=== PATIENT | female | born 1940 | race Caucasian/White ===

== ENCOUNTER 2020-09-16 15:09 | Inpatient (IN) ==
[2020-09-16] MEDS ORDERED: Morphine 4 MG/ML VIAL (1 ml) IV ONE (15:24)
[2020-09-16 16:47] LABS: ABS Lymphocytes 0.6 10^3/ul (1.0-4.8); ABS Monocytes 0.6 10^3/ul (0-0.8); ABS Neutrophils 7.9 10^3/ul (1.5-7.7); Eosinophil % 0.1 %; Hematocrit 39 % (35-47); Hemoglobin 12.8 g/dL (12.0-16.0); Lymphocyte % 6.6 %; Mean Corpuscular HGB Conc 33 g/dL (31-36); Mean Corpuscular Hemoglobin 31 pg (27-31); Mean Corpuscular Volume 94 fL (80-97); Mean Platelet Volume 9.1 fL (7.4-10.4); Platelet Count 143 10^3/uL (150-450); Red Blood Count 4.12 10^6 /uL (3.70-4.87); Red Cell Distribution Width 13 % (10-15); White Blood Count 9.2 10^3/uL (3.5-10.8)
[2020-09-16 17:08] LABS: Albumin/Globulin Ratio 1.8 (1-3); BUN/Creatinine Ratio 33.8 (8-20); Calcium 8.7 mg/dL (8.6-10.3); EGFR African American 87.1 (>60); EGFR Non-African American 71.9 (>60); Globulin 2.2 g/dL (2-4); Potassium 3.8 mmol/L (3.5-5.0); Total Bilirubin 0.5 mg/dL (0.2-1.0); Total Protein 6.2 g/dL (6.4-8.9)
[2020-09-16] MEDS ORDERED: Sodium Citrate/Citric Acid LIQ 15 ML UDC PO ONE (18:02)
[2020-09-16] MEDS: NS 0.9% 1000 ml BAG 1,000 ML IV SCH (21:41)
[2020-09-16] MEDS ORDERED: Heparin 5000 UNITS/ML 1 mL VIAL SUBCUT SCH (22:00)
[2020-09-17 05:21] LABS: ABS Monocytes 0.4 10^3/ul (0-0.8); ABS Neutrophils 2.8 10^3/ul (1.5-7.7); Eosinophil % 0.8 %; Hematocrit 36 % (35-47); Lymphocyte % 23.1 %; Mean Corpuscular HGB Conc 33 g/dL (31-36); Mean Corpuscular Hemoglobin 31 pg (27-31); Mean Corpuscular Volume 95 fL (80-97); Mean Platelet Volume 8.4 fL (7.4-10.4); Nucleated Red Blood Cells % 0.1; Platelet Count 122 10^3/uL (150-450); Red Blood Count 3.85 10^6 /uL (3.70-4.87); Red Cell Distribution Width 13 % (10-15); White Blood Count 4.3 10^3/uL (3.5-10.8)
[2020-09-17 05:26] LABS: INR 1.12 (0.82-1.09)
[2020-09-17 05:40] LABS: BUN/Creatinine Ratio 29.4 (8-20); Calcium 8.2 mg/dL (8.6-10.3); EGFR African American 100.5 (>60); Potassium 3.8 mmol/L (3.5-5.0)
[2020-09-17] MEDS: NF: Mirabegron 50 mg ER TAB (NF) PO SCH (07:54)
[2020-09-17] MEDS: NS 0.9% 1000 ml BAG 1,000 ML IV SCH (07:54)
[2020-09-17] MEDS ORDERED: Heparin 5000 UNITS/ML 1 mL VIAL SUBCUT SCH ×2 (14:00→22:00)
[2020-09-18] MEDS: NS 0.9% 1000 ml BAG 1,000 ML IV SCH ×2 (01:57→12:05)
[2020-09-18 05:36] LABS: ABS Basophils 0.1 10^3/ul (0-0.2); ABS Lymphocytes 0.7 10^3/ul (1.0-4.8); ABS Monocytes 0.8 10^3/ul (0-0.8); ABS Neutrophils 6.4 10^3/ul (1.5-7.7); Eosinophil % 0.2 %; Hematocrit 36 % (35-47); Hemoglobin 12.1 g/dL (12.0-16.0); Lymphocyte % 8.7 %; Mean Corpuscular HGB Conc 34 g/dL (31-36); Mean Corpuscular Hemoglobin 32 pg (27-31); Mean Corpuscular Volume 94 fL (80-97); Mean Platelet Volume 9.1 fL (7.4-10.4); Platelet Count 127 10^3/uL (150-450); Red Blood Count 3.79 10^6 /uL (3.70-4.87); Red Cell Distribution Width 13 % (10-15)
[2020-09-18 05:51] LABS: BUN/Creatinine Ratio 25.8 (8-20); Calcium 8.2 mg/dL (8.6-10.3); EGFR African American 111.8 (>60); EGFR Non-African American 92.4 (>60); Potassium 3.7 mmol/L (3.5-5.0)
[2020-09-18] MEDS ORDERED: fentaNYL 100 mcg/2 ml 50 MCG/ML VIAL ONE (07:27)
[2020-09-18] MEDS ORDERED: Phenylephrine 40 mcg/mL 10mL (400mcg) SYRINGE ONE ×2 (07:28→09:09)
[2020-09-18] MEDS ORDERED: Sterile Water for Inj 0 ML ONE (07:28)
[2020-09-18] MEDS ORDERED: Lidocaine 2% PF 5 ML VIAL ONE (07:28)
[2020-09-18] MEDS ORDERED: Propofol 10 MG/ML 20 ML BTL ONE (07:28)
[2020-09-18] MEDS ORDERED: EPHEDrine (Pressors) 50 MG/ML VIAL ONE (07:28)
[2020-09-18] MEDS ORDERED: Midazolam 5 mg/5 ml VIAL 1 mg/ml 5 ml VIAL (5 mg) ONE (07:28)
[2020-09-18] MEDS ORDERED: Ondansetron 4 mg VIAL 2 MG/ML 2 ml VIAL ONE (07:28)
[2020-09-18] MEDS ORDERED: Bupivacaine 0.5% SDV PF 30ML VIAL ONE (07:30)
[2020-09-18] MEDS ORDERED: Ketamine HCL 50 mg/ml 10 ml VIAL (500 MG) ONE (07:36)
[2020-09-18] MEDS ORDERED: Sterile Water for Inj 10 ML ONE (07:39)
[2020-09-18] MEDS ORDERED: Bacitracin INJECTION 50,000 UNITS ONE (07:49)
[2020-09-18] MEDS ORDERED: Lidocaine 1% w EPI 1:100,000 MDV 20 ML VIAL ONE (07:49)
[2020-09-18] MEDS ORDERED: Clindamycin 900 MG/D5W BAG 900 MG/50 ML BAG IVPB ONE (08:08)
[2020-09-18] MEDS ORDERED: Acetaminophen IV 1 GM/100ML 1,000 MG/100 ML VIAL IVPB PRN (09:19)
[2020-09-18] MEDS ORDERED: fentaNYL 100 mcg/2 ml 50 MCG/ML VIAL IV PRN (09:19)
[2020-09-18] MEDS ORDERED: Naloxone 0.4 mg VIAL 0.4 mg/ml 1 ml VIAL IV PRN (09:19)
[2020-09-18] MEDS ORDERED: Ondansetron 4 mg VIAL 2 MG/ML 2 ml VIAL IV PRN (09:19)
[2020-09-18] MEDS ORDERED: Acetaminophen IV 1 GM/100ML 100 ML ONE (11:03)
[2020-09-18] MEDS: NF: Mirabegron 50 mg ER TAB (NF) PO SCH (13:52)
[2020-09-18] MEDS: oxyCODONE/Acetamin 5/325 mg TAB PO PRN ×2 (14:40→20:56)
[2020-09-18] MEDS: Clindamycin 600 MG/D5W BAG IV SCH (17:35)
[2020-09-19] MEDS: Clindamycin 600 MG/D5W BAG IV SCH ×2 (00:12→09:14)
[2020-09-19] MEDS: NS 0.9% 1000 ml BAG 1,000 ML IV SCH (05:33)
[2020-09-19] MEDS: oxyCODONE/Acetamin 5/325 mg TAB PO PRN ×2 (05:33→18:12)
[2020-09-19 07:16] LABS: ABS Lymphocytes 0.4 10^3/ul (1.0-4.8); ABS Monocytes 0.6 10^3/ul (0-0.8); ABS Neutrophils 5.7 10^3/ul (1.5-7.7); Eosinophil % 0.3 %; Hematocrit 30 % (35-47); Hemoglobin 10.2 g/dL (12.0-16.0); Lymphocyte % 6.3 %; Mean Corpuscular HGB Conc 34 g/dL (31-36); Mean Corpuscular Hemoglobin 32 pg (27-31); Mean Corpuscular Volume 94 fL (80-97); Mean Platelet Volume 9.2 fL (7.4-10.4); Platelet Count 107 10^3/uL (150-450); Red Blood Count 3.21 10^6 /uL (3.70-4.87); Red Cell Distribution Width 13 % (10-15); White Blood Count 6.8 10^3/uL (3.5-10.8)
[2020-09-19 07:27] LABS: BUN/Creatinine Ratio 25.7 (8-20); Calcium 7.7 mg/dL (8.6-10.3); EGFR African American 97.2 (>60); EGFR Non-African American 80.3 (>60)
[2020-09-19] MEDS: NF: Mirabegron 50 mg ER TAB (NF) PO SCH (09:30)
[2020-09-19] MEDS: Magnesium Hydroxide LIQ 30 ML UDC PO PRN (22:11)
[2020-09-20] MEDS: oxyCODONE/Acetamin 5/325 mg TAB PO PRN (05:22)
[2020-09-20 06:52] LABS: ABS Eosinophils 0.1 10^3/ul (0-0.6); ABS Monocytes 0.5 10^3/ul (0-0.8); ABS Neutrophils 3.4 10^3/ul (1.5-7.7); Eosinophil % 1.1 %; Hematocrit 30 % (35-47); Hemoglobin 10.1 g/dL (12.0-16.0); Lymphocyte % 20.5 %; Mean Corpuscular HGB Conc 33 g/dL (31-36); Mean Corpuscular Hemoglobin 32 pg (27-31); Mean Corpuscular Volume 94 fL (80-97); Mean Platelet Volume 9.5 fL (7.4-10.4); Platelet Count 106 10^3/uL (150-450); Red Blood Count 3.21 10^6 /uL (3.70-4.87); Red Cell Distribution Width 13 % (10-15)
[2020-09-20 07:13] LABS: Calcium 7.9 mg/dL (8.6-10.3); EGFR African American 115.8 (>60); EGFR Non-African American 95.7 (>60); Potassium 3.8 mmol/L (3.5-5.0)
[2020-09-20 08:09] VITALS: BP 126/65
[2020-09-20] MEDS: Magnesium Hydroxide LIQ 30 ML UDC PO PRN (08:19)
[2020-09-20] MEDS ORDERED: PTO: Mirabegron 50 mg ER TAB (NF) PO SCH (09:00)
== END 2020-09-20 09:42 | DRG 482 ==
LOC: ED 15:09 → SSU 20:03 → SUATTDRO 20:03 → SSU 21:12
PROVIDERS: ADMIT Hospitalist; ATTEND Internal Medicine

== ENCOUNTER 2020-09-20 08:24 | Inpatient (IN) ==
[2020-09-20] MEDS ORDERED: Magnesium Hydroxide LIQ 30 ML UDC PO PRN (11:15)
[2020-09-20] MEDS: oxyCODONE/Acetamin 5/325 mg TAB PO PRN (19:16)
[2020-09-21] MEDS ORDERED: PTO: Mirabegron 50 mg ER TAB (NF) PO SCH (09:00)
[2020-09-21 09:27] LABS: ABS Eosinophils 0.1 10^3/ul (0-0.6); ABS Monocytes 0.4 10^3/ul (0-0.8); ABS Neutrophils 3.8 10^3/ul (1.5-7.7); Eosinophil % 1.2 %; Hematocrit 33 % (35-47); Hemoglobin 11.1 g/dL (12.0-16.0); Lymphocyte % 18.6 %; Mean Corpuscular HGB Conc 33 g/dL (31-36); Mean Corpuscular Hemoglobin 32 pg (27-31); Mean Corpuscular Volume 94 fL (80-97); Mean Platelet Volume 9.3 fL (7.4-10.4); Platelet Count 186 10^3/uL (150-450); Red Blood Count 3.51 10^6 /uL (3.70-4.87); Red Cell Distribution Width 13 % (10-15); White Blood Count 5.2 10^3/uL (3.5-10.8)
[2020-09-21 09:45] LABS: Albumin 3.4 g/dL (3.2-5.2); Albumin/Globulin Ratio 1.3 (1-3); BUN/Creatinine Ratio 22.9 (8-20); Calcium 8.8 mg/dL (8.6-10.3); EGFR African American 96.9 (>60); EGFR Non-African American 80.1 (>60); Globulin 2.7 g/dL (2-4); Potassium 3.9 mmol/L (3.5-5.0); Total Bilirubin 0.5 mg/dL (0.2-1.0); Total Protein 6.1 g/dL (6.4-8.9)
[2020-09-21] MEDS: oxyCODONE/Acetamin 5/325 mg TAB PO PRN ×2 (10:22→14:42)
[2020-09-21] MEDS: PTO: Mirabegron 50 mg ER TAB (NF) PO SCH (19:55)
[2020-09-22] MEDS: oxyCODONE/Acetamin 5/325 mg TAB PO PRN (11:20)
[2020-09-22] MEDS: Senna TAB 8.6 mg TAB PO PRN (20:21)
[2020-09-22] MEDS: PTO: Mirabegron 50 mg ER TAB (NF) PO SCH (20:22)
[2020-09-23] MEDS: oxyCODONE/Acetamin 5/325 mg TAB PO PRN (10:11)
[2020-09-23 15:17] LABS: Urine Appearance Cloudy; Urine Bilirubin Negative (Negative); Urine Blood Negative (Negative); Urine Color Yellow; Urine Glucose Negative (Negative); Urine Ketones Negative (Negative); Urine Nitrite Negative (Negative); Urine Protein Negative (Negative); Urine Specific Gravity 1.023 (1.002-1.030); Urine Urobilinogen Negative (Negative)
[2020-09-23] MEDS: PTO: Mirabegron 50 mg ER TAB (NF) PO SCH (17:56)
[2020-09-24] MEDS: PTO: Mirabegron 50 mg ER TAB (NF) PO SCH (16:53)
[2020-09-25] MEDS: PTO: Mirabegron 50 mg ER TAB (NF) PO SCH (17:02)
[2020-09-26] MEDS: PTO: Mirabegron 50 mg ER TAB (NF) PO SCH (16:56)
[2020-09-26] MEDS: Senna TAB 8.6 mg TAB PO PRN (20:23)
[2020-09-27] MEDS: PTO: Mirabegron 50 mg ER TAB (NF) PO SCH (17:19)
[2020-09-28 06:52] LABS: ABS Eosinophils 0.1 10^3/ul (0-0.6); ABS Lymphocytes 1.1 10^3/ul (1.0-4.8); ABS Monocytes 0.4 10^3/ul (0-0.8); Eosinophil % 2.1 %; Hematocrit 32 % (35-47); Hemoglobin 10.9 g/dL (12.0-16.0); Lymphocyte % 23.7 %; Mean Corpuscular HGB Conc 34 g/dL (31-36); Mean Corpuscular Hemoglobin 32 pg (27-31); Mean Corpuscular Volume 95 fL (80-97); Mean Platelet Volume 8.5 fL (7.4-10.4); Nucleated Red Blood Cells % 0.1; Platelet Count 252 10^3/uL (150-450); Red Blood Count 3.43 10^6 /uL (3.70-4.87); Red Cell Distribution Width 13 % (10-15); White Blood Count 4.6 10^3/uL (3.5-10.8)
[2020-09-28 07:09] LABS: Albumin 3.4 g/dL (3.2-5.2); Albumin/Globulin Ratio 1.4 (1-3); BUN/Creatinine Ratio 26.9 (8-20); Calcium 8.7 mg/dL (8.6-10.3); EGFR African American 85.6 (>60); EGFR Non-African American 70.7 (>60); Globulin 2.4 g/dL (2-4); Potassium 3.8 mmol/L (3.5-5.0); Total Bilirubin 0.5 mg/dL (0.2-1.0); Total Protein 5.8 g/dL (6.4-8.9)
[2020-09-28] MEDS: PTO: Mirabegron 50 mg ER TAB (NF) PO SCH (17:09)
[2020-09-28] MEDS ORDERED: oxyCODONE/Acetamin 5/325 mg TAB PO PRN (20:43)
[2020-09-29 06:13] VITALS: BP 127/59
== END 2020-09-29 13:34 | disposition home health service (06) | DRG 561 ==
LOC: PMRU 11:11
PROVIDERS: ADMIT Physical Medicine & Rehabilitation; ATTEND Physical Medicine & Rehabilitation

== ENCOUNTER 2020-11-10 10:51 | Observation (INO) ==
[2020-11-10] MEDS ORDERED: NS 0.9% 1000 ml BAG 1,000 ML IV ONE (11:28)
[2020-11-10] MEDS ORDERED: LORazepam 2 mg VIAL 1 ml IV ONE (11:28)
[2020-11-10] MEDS ORDERED: Ondansetron 4 mg VIAL 2 MG/ML 2 ml VIAL IV ONE (11:30)
[2020-11-10 12:22] LABS: Urine Appearance Clear; Urine Bilirubin Negative (Negative); Urine Blood Negative (Negative); Urine Color Straw; Urine Glucose Negative (Negative); Urine Ketones Negative (Negative); Urine Nitrite Negative (Negative); Urine Protein Negative (Negative); Urine Specific Gravity 1.009 (1.002-1.030); Urine Urobilinogen Negative (Negative)
[2020-11-10 12:55] LABS: INR 1.32 (0.82-1.09)
[2020-11-10 13:06] LABS: ABS Lymphocytes 0.6 10^3/ul (1.0-4.8); ABS Monocytes 0.3 10^3/ul (0-0.8); ABS Neutrophils 3.2 10^3/ul (1.5-7.7); Eosinophil % 0.2 %; Hematocrit 38 % (35-47); Hemoglobin 12.7 g/dL (12.0-16.0); Lymphocyte % 15.5 %; Mean Corpuscular HGB Conc 34 g/dL (31-36); Mean Corpuscular Hemoglobin 32 pg (27-31); Mean Corpuscular Volume 95 fL (80-97); Nucleated Red Blood Cells % 0.1; Red Blood Count 3.99 10^6 /uL (3.70-4.87); Red Cell Distribution Width 14 % (10-15); White Blood Count 4.2 10^3/uL (3.5-10.8)
[2020-11-10 13:25] LABS: ALT 16 U/L (7-52); Albumin 4.1 g/dL (3.2-5.2); Albumin/Globulin Ratio 1.7 (1-3); Alkaline Phosphatase 80 U/L (35-149); Anion Gap 3 mmol/L (2-11); Blood Urea Nitrogen 19 mg/dL (6-24); CO2 Carbon Dioxide 26 mmol/L (22-32); Calcium 8.8 mg/dL (8.6-10.3); Chloride 105 mmol/L (101-111); EGFR African American 103.7 (>60); EGFR Non-African American 85.7 (>60); Globulin 2.4 g/dL (2-4); Glucose 116 mg/dL (70-100); Sodium 134 mmol/L (135-145); Total Protein 6.5 g/dL (6.4-8.9)
[2020-11-10] MEDS ORDERED: Iohexol 350 (CONTRAST) 500 ML MDV IV ONE (13:39)
[2020-11-10 13:54] LABS: Mean Platelet Volume 9.9 fL (7.4-10.4); Platelet Count 217 10^3/uL (150-450)
[2020-11-10 14:53] LABS: Potassium Redraw 3.6 mmol/L (3.5-5.0)
[2020-11-10] MEDS ORDERED: Ondansetron 4 mg VIAL 2 MG/ML 2 ml VIAL IV PRN (17:14)
[2020-11-10] MEDS ORDERED: Al Hydrox/Mg Hydrox/Simet LIQ 30 ML UDC PO PRN (17:14)
[2020-11-10] MEDS ORDERED: Mirabegron 50 mg ER TAB (NF) PO SCH (18:00)
[2020-11-10] MEDS ORDERED: Enoxaparin 40 MG/0.4 ML SYR SUBCUT SCH (18:00)
[2020-11-11 16:12] LABS: TSH Ultra Thyroid Stim Horm 0.45 mcIU/mL (0.34-5.60)
[2020-11-11 16:42] VITALS: BP 126/59
== END 2020-11-11 16:45 | disposition home or self-care (01) ==
LOC: MEDTELE 10:51 → ED 10:51 → MEDTELE 19:27
PROVIDERS: ADMIT Hospitalist; ATTEND Internal Medicine

== ENCOUNTER 2022-06-07 17:38 | Inpatient (IN) ==
[2022-06-07 18:24] LABS: ABS Eosinophils 0.1 10^3/ul (0-0.6); ABS Monocytes 0.6 10^3/ul (0-0.8); ABS Neutrophils 3.8 10^3/ul (1.5-7.7); Eosinophil % 1.2 %; Hematocrit 35 % (35-47); Hemoglobin 11.7 g/dL (12.0-16.0); Lymphocyte % 18.3 %; Mean Corpuscular HGB Conc 33 g/dL (31-36); Mean Corpuscular Hemoglobin 31 pg (27-31); Mean Corpuscular Volume 93 fL (80-97); Mean Platelet Volume 9.1 fL (7.4-10.4); Platelet Count 107 10^3/uL (150-450); Red Cell Distribution Width 14 % (10-15); White Blood Count 5.5 10^3/uL (3.5-10.8)
[2022-06-07 18:31] LABS: INR 1.07 (0.88-1.18)
[2022-06-07 19:00] LABS: Albumin 3.7 g/dL (3.2-5.2); Albumin/Globulin Ratio 1.7 (1-3); Calcium 8.3 mg/dL (8.6-10.3); Globulin 2.2 g/dL (2-4); Total Bilirubin 0.4 mg/dL (0.2-1.0); Total Protein 5.9 g/dL (6.4-8.9); eGFR CKD-EPI 74.2 (>60)
[2022-06-07 19:02] LABS: Potassium 4.2 mmol/L (3.5-5.0)
[2022-06-07] MEDS ORDERED: Iohexol 350 (CONTRAST) 500 ML MDV IV ONE (19:24)
[2022-06-07] MEDS ORDERED: Enoxaparin 30 MG/0.3 ML SYR SUBCUT SCH (23:00)
[2022-06-07 23:19] LABS: HDL Cholesterol 61.5 mg/dL
[2022-06-08 00:34] LABS: Magnesium 2.1 mg/dL (1.9-2.7)
[2022-06-08] MEDS ORDERED: Dextran 70/Hypromellose Tears Eye Drops 15 ml BTL (for Artificials Tears) BOTH EYES PRN (05:43)
[2022-06-08 07:19] LABS: ABS Eosinophils 0.1 10^3/ul (0-0.6); ABS Lymphocytes 1.1 10^3/ul (1.0-4.8); ABS Monocytes 0.5 10^3/ul (0-0.8); ABS Neutrophils 3.2 10^3/ul (1.5-7.7); Eosinophil % 1.4 %; Hematocrit 36 % (35-47); Hemoglobin 12.1 g/dL (12.0-16.0); Lymphocyte % 21.8 %; Mean Corpuscular HGB Conc 33 g/dL (31-36); Mean Corpuscular Hemoglobin 31 pg (27-31); Mean Corpuscular Volume 93 fL (80-97); Mean Platelet Volume 8.6 fL (7.4-10.4); Platelet Count 109 10^3/uL (150-450); Red Blood Count 3.91 10^6 /uL (3.70-4.87); Red Cell Distribution Width 14 % (10-15); White Blood Count 4.9 10^3/uL (3.5-10.8)
[2022-06-08 08:12] LABS: Calcium 8.5 mg/dL (8.6-10.3); Potassium 3.7 mmol/L (3.5-5.0); eGFR CKD-EPI 82.9 (>60)
[2022-06-08] MEDS ORDERED: NF: Mirabegron 50 mg ER TAB (NF) PO SCH (09:00)
[2022-06-08] MEDS ORDERED: Cyclosporine 0.05% OPHTH (NF) 0.4 ML VIAL BOTH EYES SCH (09:00)
[2022-06-08 16:10] VITALS: BP 139/63
== END 2022-06-08 16:10 | disposition home or self-care (01) | DRG 91 ==
LOC: ED 17:38 → EDHOLD 21:12 → SUATTDRO 21:12 → EDHOLD 06-08 05:51
PROVIDERS: ADMIT Internal Medicine; ATTEND Internal Medicine